=== PATIENT | male | born 1955 | race Caucasian/White ===

== ENCOUNTER 2024-06-17 10:57 | Emergency (ER) | payer MEDICARE, OTHER, SELFPAY ==
[2024-06-17 11:09] VITALS: BP 100/62
--- NOTE | 2024-06-17 12:02 | ED.GENMED ---
History of Present Illness
General
Chief Complaint: Cardiac Symptoms
Source: patient
Exam Limitations: none
Time Seen by Provider: 06/17/24 11:45
History of Present Illness
History of Present Illness:
See MDM
Past History
Past History
ED Past Medical History: Arrthythmia
ED Past Surgical History: None
Social History
Tobacco: Non-smoker
Alcohol: None
Phy Exam
Physical Exam
Physical Exam:
See MDM
Course
Orders/Labs/Results
Orders:
Orders
06/17/24 10:58
EKG [Electrocardiogram (*1)] Urgent
Reason for Study: Atrial Fibrillation
06/17/24 10:59
EKG- Treatment ONCE
06/17/24 12:01
0.9% Sodium Chloride 1000 ml [Nss] 1,000 ml IV BOLUS
Diltiazem HCl [Cardizem] 20 mg IV NOW STA
06/17/24 12:45
Complete Blood Count/With Diff Urgent
Comprehensive Metabolic Panel Urgent
Magnesium Urgent
Abnormal Lab Results
06/17/24
12:45
MCH 31.2 H pg
(27.0-31.0)
MPV 11.0 H fL
(7.4-10.4)
06/17/24 12:45
06/17/24 12:45
Vital Signs
Initial and Last Documented VS:
Initial Vital Signs
BP
100/62
06/17/24 11:09
Last Documented Vital Signs
Pulse Resp BP Pulse Ox
109 13 100/62 98
06/17/24 11:30 06/17/24 11:30 06/17/24 11:09 06/17/24 11:42
MDM/Problems Addressed
Differential Diagnosis Includes:
HPI and MDM Narrative:
69-year-old male presenting with recurrent A-fib. This is a new diagnosis as of 6 weeks ago or so. It was found during a routine visit with his PCP. He was admitted at that time to an outside hospital where he received a transesophageal echo and
was cardioverted. He was placed on sotalol. He had recurrent A-fib requiring another cardioversion. He is now on diltiazem. Patient states compliance with his Eliquis. He presents to this hospital with recurrent A-fib. He has cardiology
follow-up in 2 weeks
Will obtain basic blood work and provide IV Cardizem and attempt to chemically cardiovert. Since patient has required synchronized cardioversion in the past, patient will likely require this again. Regardless, will reach out to our cardiology
group for follow-up and possible medication changes
Physical exam
General: Well appearing and non-toxic
HEENT: protecting airway
Neck: appears supple
CV: No evidence of cyanosis. Tachycardic and irregular
Resp: No accessory muscle use
Abd: Non-distended
Extremities: No deformities
Neuro: alert
Psych: Normal affect
Skin: Intact
Problems Addressed including Acute and Chronic Conditions affecting care:
1. A-fib with RVR
Acuity: acute
Prognosis: unstable
Details: Will give dose of IV Cardizem and attempt to chemically cardiovert. If patient still persistently in A-fib with RVR, will consider synchronized cardioversion
Updates
Cardiology curb sided and recommended doubling his Cardizem
After IV Cardizem, patient is rate controlled and feels comfortable going home. I did offer cardioversion but patient feels comfortable with doubling his Cardizem and follow-up with cardiology
Patient states he has enough diltiazem to get him through to his cardiology appointment.
Differential Diagnosis (but not limited to): A-fib with RVR, electrolyte abnormality
Testing considered: Troponin but denies chest pain or shortness of breath
Drug therapy (if applicable): OTC meds, please see d/c instruction regarding Rx drugs
Amount and/or Complexity of Data Reviewed
Clinical info obtained from: Patient
External data reviewed: N/A
Labs I independently reviewed (but not limited to): Electrolytes within normal limits
Radiology: N/A
Pulse Ox: not hypoxic
EKG independently reviewed: A-fib with RVR, normal axis, no STEMI
Teletypesetter Operator: A-fib with RVR
Critical Care: the high probability of a clinically significant, sudden or life threatening deterioration of the cardiovascular system(s) required my full and direct attention, intervention and personal management. The aggregate critical care time
was 33 minutes. This time is in addition to time spent performing reported procedures but includes the following:
[x] Data Review and interpretation
[x] Patient assessment and monitoring of vital signs
[x] Documentation
[x] Medication orders and management
Risk of Complication:
Social Determinants of health: Good social support
Discussed with other providers: N/A
Escalation of Care includes Admit/Obs: After being observed in the Emergency Department, pt stable for discharge.
Occasional wrong word or 'sound a like' substitutions may have occurred due to the inherent limitations of voice recognition software. Read the chart carefully and recognize, using context, where substitutions have occurred.
*Critical Care Note
Total Time (30-74mins, 75-104mins- exclusive of procedures): 33 min
ED Attending Note
-
Portions of this chart may have been created with voice recognition software.� Occasional wrong word or��sound alike� substitutions may have occurred due to the inherent limitations of voice recognition software.
Discharge Plan
Departure
Patient Disposition: Home (Routine Discharge)
Date of Disposition: 06/17/24
Time of Disposition: 13:47
Patient with high blood pressure during this ER visit?: No
Discharge Problem:
A-fib
Referrals:
Jf Ruiz MD [Active] -
NONE,* [Family Provider] -
Activity Restrictions/Additional Instructions:
Please return for any worsening symptoms.
You may return at any time if you have further concerns.
Please follow up with your doctor at the first available appointment, preferably this week.
You were placed on the cardiac callback tracker. Someone from their office should call you in the next few days. If you do not hear from them in the next few days, please give them a call.
Cardiology recommending that you take your diltiazem twice a day moving forward instead of once a day.
Thank you for choosing [facility].
Interventions
Interventions:
*Risk Screen - Suicide Last Done: 06/17/24 10:59
*General Assessment Last Done: 06/17/24 11:42
*Neglect/Abuse Screening Last Done: 06/17/24 10:59
*ED COVID-19 Vaccine History Last Done: 06/17/24 11:42
ED- Pulmonary Assessment Last Done: 06/17/24 11:42
ED- Cardiac Assessment Last Done: 06/17/24 11:42
Discharge Date and Time
Print Language: MAORI
[2024-06-17] MEDS: NSS 1000 IV (12:48)
[2024-06-17] MEDS: CARDIZEM 20 MG IV (12:48)
[2024-06-17 12:50] VITALS: BP 106/57
[2024-06-17 13:00] VITALS: BP 127/96
[2024-06-17 13:03] LABS: % Basophils 0.5 % (0-2); % Eosinophils 1.2 % (0-6); % Immature Granulocytes 0.3 % (0-0.5); % Lymphocytes 21.3 % (20.5-51.1); % Monocytes 9.3 % (1.7-9.3); % Neutrophils 67.4 % (42.2-75.2); Absolute Eosinophils 0.1 10^3/uL (0-0.7); Absolute Lymphocytes 1.2 10^3/uL (1.2-3.4); Absolute Monocytes 0.5 10^3/uL (0.1-0.6); Absolute Neutrophils 3.9 10^3/uL (1.4-6.5); Hematocrit 50.7 % (39.0-52.0); Hemoglobin 17.4 g/dL (13.0-18.0); Mean Corp Hgb Conc. 34.3 g/dL (33.0-37.0); Mean Corpuscular Hgb 31.2 pg (27.0-31.0); Mean Corpuscular Volume 90.9 fL (80.0-94.0); Nucleated Red Blood Cells % 0 % (-); Platelet Count 145 10^3/uL (130-400); Red Blood Cell Count 5.58 10^6/uL (4.70-6.10); Red Cell Dist. Width 12.9 % (11.5-14.5); White Blood Cell Count 5.8 10^3/uL (4.8-10.8)
[2024-06-17 13:07] LABS: ALT (SGPT) 36 U/L (0-50); AST (SGOT) 23 U/L (17-59); Albumin 4.3 g/dl (3.5-5.0); Alkaline Phosphatase 77 U/L (38-126); Blood Urea Nitrogen 16 mg/dl (9-20); Calcium 10.1 mg/dl (8.4-10.2); Carbon Dioxide 30 mmol/L (22-30); Chloride 103 mmol/L (98-107); Glucose 95 mg/dl (70-99); Magnesium 2.3 mg/dl (1.6-2.3); Potassium 4.4 mmol/L (3.5-5.1); Sodium 139 mmol/L (135-145); Total Bilirubin 0.7 mg/dl (0.2-1.3); Total Protein 6.5 g/dl (6.3-8.2); eGFR > 60.00
[2024-06-17 14:00] VITALS: BP 124/94
== END 2024-06-17 14:15 | disposition home or self-care (01) ==
LOC: EMR 10:57
PROVIDERS: EMERGENCY PHYSICIAN Student in an Organized Health Care Education/Training Program
DX: I48.91 Unspecified atrial fibrillation (principal); Z79.01 Long term (current) use of anticoagulants
CPT/HCPCS: 99284; 96374; 96361; 80053; 83735; 85025; 93005

== ENCOUNTER 2024-06-23 21:05 | Emergency (ER) | payer MEDICARE, OTHER, SELFPAY ==
[2024-06-23 21:44] VITALS: BP 114/52
--- NOTE | 2024-06-23 21:45 | ED.GENMED ---
ED Provider Triage
-
Patient seen by provider in Triage?: Seen in Triage
Attestation: A medical screening examination has been initiated by a qualified medical provider. Based on the assessment performed at this time, it has been determined that an emergent medical condition may exist and the patient has been informed
that further medical evaluation and possible additional diagnostic testing may be needed.
HPI: 69yoM here with elevated heart rate. Diagnosed with afib at [facility] last month. Underwent cardioversion x2 since then without sustained results. Has an appt scheduled in June to discuss ablation. Currently on diltiazem and Eliquis.
Checked his heart rate on his home monitor this evening and HR elevated in the 140s so he came to the ED. He is asymptomatic without chest pain, palpitations, SOB, dizziness, syncope.
GENERAL: Alert , in no apparent distress
EYE: No visual abnormalities.
NECK: Trachea midline
ENT: No visible abnormalities.
LUNGS: No acute respiratory distress
NEUROLOGICAL: Alert and oriented
SKIN: Skin intact. No visible changes.
MUSCULOSKELETAL: Moving extremities normally
PSYCH: Normal and appropriate interaction.
Patient had EKG performed prior to triage which shows afib with HR in the 100s. Patient states he would like to go home without further testing as the only reason he was here was for rate control. BP is stable. Discussed risks of leaving AMA which
he understands. AMA paperwork signed. He was advised to return to the ED with any new or worsening symptoms.
History of Present Illness
General
Chief Complaint: Heart Rate Problem
Time Seen by Provider: 06/23/24 21:45
History of Present Illness
History of Present Illness:
See triage documentation
Past History
Past History
ED Past Medical History: Arrthythmia
ED Past Surgical History: None
Social History
Tobacco: Non-smoker
Alcohol: None
Phy Exam
Physical Exam
Physical Exam:
See triage documentation
Course
Vital Signs
Initial and Last Documented VS:
Initial Vital Signs
Temp Pulse Resp BP Pulse Ox
98.8 F 106 20 114/52 96
06/23/24 21:44 06/23/24 21:44 06/23/24 21:44 06/23/24 21:44 06/23/24 21:44
Last Documented Vital Signs
Temp Pulse Resp BP Pulse Ox
98.8 F 106 20 114/52 96
06/23/24 21:44 06/23/24 21:44 06/23/24 21:44 06/23/24 21:44 06/23/24 21:44
*Critical Care Note
Total Time (30-74mins, 75-104mins- exclusive of procedures): Not Applicable
ED Attending Note
-
Portions of this chart may have been created with voice recognition software.� Occasional wrong word or��sound alike� substitutions may have occurred due to the inherent limitations of voice recognition software.
Discharge Plan
Departure
Patient Disposition: Against Medical Advice
Date of Disposition: 06/23/24
Time of Disposition: 21:46
Discharge Problem:
Atrial fibrillation
Instructions: Atrial Fibrillation (DC), Leaving Against Medical Advice
Referrals:
UNKNOWN - PT DOES,NOT KNOW [Family Provider] -
Activity Restrictions/Additional Instructions:
Continue taking diltiazem and Eliquis.
Please follow-up with your art psychotherapist or therapist. Return to the ER immediately with any worsening symptoms, chest pain, shortness of breath, dizziness, passing out.
Interventions
Interventions:
*Risk Screen - Suicide Last Done: 06/23/24 21:44
*General Assessment Last Done: 06/23/24 21:44
*Neglect/Abuse Screening Last Done: 06/23/24 21:44
*Nursing Disposition Last Done: 06/23/24 21:51
Discharge Date and Time
Discharge Date/Time: 06/23/24 21:55
Print Language: SALVADOREAN
== END 2024-06-23 21:55 | disposition left against medical advice (07) ==
LOC: EMR 21:05
PROVIDERS: EMERGENCY PHYSICIAN Emergency Medicine
DX: I48.91 Unspecified atrial fibrillation (principal); Z79.01 Long term (current) use of anticoagulants
CPT/HCPCS: 99283; 93005

== ENCOUNTER → 2024-07-18 10:43 | Outpatient (REF) | payer MEDICARE, OTHER, SELFPAY | LOC: DHSLP 10:43 | PROVIDERS: ATTENDING PHYSICIAN Internal Medicine Critical Care Medicine; FAMILY PHYSICIAN Internal Medicine Cardiovascular Disease | DX: G47.33 Obstructive sleep apnea (adult) (pediatric) (principal); R09.02 Hypoxemia | CPT/HCPCS: 95800 ==

== ENCOUNTER → 2024-09-04 07:47 | Outpatient (REF) | payer MEDICARE, OTHER, SELFPAY ==
[2024-09-04 08:38] LABS: INR 1.27; PT 16.1 Sec (11.4-14.6)
[2024-09-04 08:46] LABS: ALT (SGPT) 43 U/L (0-50); AST (SGOT) 27 U/L (17-59); Albumin 4.2 g/dl (3.5-5.0); Alkaline Phosphatase 77 U/L (38-126); Blood Urea Nitrogen 14 mg/dl (9-20); Calcium 9.7 mg/dl (8.4-10.2); Carbon Dioxide 30 mmol/L (22-30); Chloride 106 mmol/L (98-107); Glucose 96 mg/dl (70-99); Magnesium 2.1 mg/dl (1.6-2.3); Potassium 4.7 mmol/L (3.5-5.1); Sodium 142 mmol/L (135-145); Total Bilirubin 0.9 mg/dl (0.2-1.3); eGFR > 60.00
[2024-09-04 08:50] LABS: % Basophils 0.3 % (0-2); % Eosinophils 2.3 % (0-6); % Immature Granulocytes 0.5 % (0-0.5); % Lymphocytes 19.3 % (20.5-51.1); % Monocytes 10.3 % (1.7-9.3); % Neutrophils 67.7 % (42.2-75.2); Absolute Eosinophils 0.1 10^3/uL (0-0.7); Absolute Lymphocytes 1.2 10^3/uL (1.2-3.4); Absolute Monocytes 0.6 10^3/uL (0.1-0.6); Absolute Neutrophils 3.9 10^3/uL (1.4-6.5); Hematocrit 45.1 % (39.0-52.0); Hemoglobin 15.2 g/dL (13.0-18.0); Mean Corp Hgb Conc. 34.1 g/dL (33.0-37.0); Mean Corpuscular Hgb 31.9 pg (27.0-31.0); Mean Corpuscular Volume 93.5 fL (80.0-94.0); Mean Platelet Volume 11.2 fL (7.4-10.4); Nucleated Red Blood Cells % 0 % (-); Platelet Count 127 10^3/uL (130-400); Red Blood Cell Count 4.89 10^6/uL (4.70-6.10); Red Cell Dist. Width 13.8 % (11.5-14.5); White Blood Cell Count 5.7 10^3/uL (4.8-10.8)
== END ==
LOC: SDSPAT 07:47
PROVIDERS: ATTENDING PHYSICIAN Internal Medicine Cardiovascular Disease; OTHER PHYSICIAN Internal Medicine Cardiovascular Disease
DX: I48.91 Unspecified atrial fibrillation (principal)
CPT/HCPCS: 36415; 75572; 80053; 83735; 85025; 85610; 86850; 86900; 86901; 93005; Q9967

== ENCOUNTER 2024-09-12 05:59 | Day surgery (SDC) | payer MEDICARE, OTHER, SELFPAY ==
[2024-09-04 07:55] VITALS: BMI 29.7
--- NOTE | 2024-09-04 08:34 | HPS.HSE ---
Family Physician
-
Family Physician: NO INTERVIEW UNKNOWN
Chief Complaint
-
Persistent atrial fibrillation.
History of Present Illness
The patient is a 69 year old male presenting today for persistent atrial fibrillation. The patient reports symptoms such as fatigue, decreased exercise capacity, and intermittent palpitations likely secondary to this diagnosis. He
previously underwent 2 EBONY-guided cardioversions in April 2024 and May 2024 for his arrhythmia. Unfortunately, he has had an early recurrence of his atrial fibrillation after each procedure. He is currently on pharmacological therapy with
Diltiazem and Metoprolol Tartrate. He reports compliance with Eliquis for oral anticoagulation due to a CHADS-VASc of 1. He is interested in pursuing pulmonary vein isolation for more definitive arrhythmia management. He denies any current
complaints today such as chest pain, shortness of breath, nausea, vomiting, diarrhea, lightheadedness, dizziness, cough, sore throat, or fever.
Medical History
Past Medical History
Past Medical History: Reports Other
Additional Past Medical History:
1. Persistent atrial fibrillation, status post EBONY-guided cardioversion x2; pharmacological therapy with Diltiazem and Metoprolol Tartrate, oral anticoagulation with Eliquis.
2. Hyperlipidemia, diet controlled.
3. Venous insufficiency with chronic, bilateral lower extremity edema.
4. Mild mitral regurgitation.
5. Mild-moderate tricuspid regurgitation.
6. Chronic interstitial lung disease per pre-ablation chest CT.
7. Newly diagnosed sleep apnea, awaiting device.
8. Colon polyps.
9. BPH.
Past Surgical History: Reports Other
Additional Past Surgical History:
1. EBONY-guided cardioversion x2.
2. Left knee surgery.
3. Rectal fissure repair.
4. Childhood double hernia repair.
5. Colonoscopy x3.
Social History
Tobacco: Non-smoker
Alcohol: None
Personal:
Living: Other (He lives with his in a 2 story home. )
Family History
Family History: Not pertinent
Allergies / Home Medications
Allergy/Medication List:
Home medications:
1. Eliquis 5 mg p.o. twice a day.
2. Cholecalciferol 125 mcg p.o. daily.
3. Curcumin complex 750 mg p.o. daily.
4. Diltiazem 120 mg p.o. twice a day.
5. Garlic 1160 p.o. twice a day.
6. Amharic knot weed 2 tablets p.o. twice a day.
7. Metoprolol Tartrate 25 mg p.o. twice a day.
8. Multivitamin 1 tablet p.o. daily.
9. Nattokinase 2000 units p.o. daily.
10. Ivette dietary supplement 1 tablet p.o. twice a day.
11. Joselyn-sode 1 dose p.o. daily.
12. Vitamin B12 1 spray p.o. daily.
Allergies: No known allergies.
Review of Systems
-
A 12 point ROS was completed and negative except as noted: Yes
Physical Exam
Vital Signs
Blood pressure 113/77. Heart rate 58. Respirations 18. Pulse ox 99% on room air.
Height 6 feet, 1.14 inches. Weight 102.4 kg. BMI 29.7.
Physical Exam
General: Well Developed, Well Nourished and No Apparent Distress
HEENT: NormoCephalic, Moist mucous membranes, Atraumatic and PERRLA
Respiratory: Clear
Cardiac: Irregular Rhythm
GI: Soft, Non Tender and Non Distended
Musculoskeletal: Normal Gait & Station and Other (Chronic bilateral lower extremity edema with venous stasis. )
Skin: Warm and Dry
Neuro: AO x 3 and Nonfocal/grossly intact
Laboratory Results
-
DIAGNOSTIC STUDIES as of 09/04/2024: White blood cell count 5.7. Hemoglobin 15.2. Platelet count 127,000. PT 16.1. INR 1.27. Sodium 142. Potassium 4.7. BUN 14. Creatinine 0.8. Glucose 96. Calcium 9.7. Magnesium 2.1. AST 27. ALT 43. Albumin 4.2. Type
and screen A positive.
EKG 09/04/2024: Atrial fibrillation.
Chest CT 09/04/2024: Single, individual left and right superior and inferior pulmonary veins. No left atrial filling defect/thrombus is identified. Bilateral subpleural peripheral reticular interstitial and mild groundglass opacities most suggestive
of a chronic interstitial lung disease.
Echocardiogram 06/15/2024: Ejection fraction is 52%. Mild dysfunction. Mildly dilated right atrium. Mild mitral regurgitation. Mild-moderate tricuspid regurgitation.
Impression/Plan
-
IMPRESSION/PLAN:
1. Persistent atrial fibrillation: The patient is in need of pulmonary vein isolation with Dr. Ben Cardenas on 09/12/2024. The benefits and risks of the procedure have been explained to the patient. The patient understands these risks and wishes to
proceed. He will not be required to undergo a pre-procedural transesophageal echocardiogram as he has been compliant with his home oral anticoagulation. He is aware to continue his Eliquis up until the night prior to his procedure. He will take no
medications the morning of his ablation.
[2024-09-12] VITALS (17 sets, daily range): BP systolic 80–97; BP diastolic 49–69; BMI 29.8
--- NOTE | 2024-09-12 07:38 | ITS.CL.ABL ---
Recessing Machine Operator - Ablation
Ablation
Procedure Report:
Primary Air Brakes Inspector: Dr Ena Herrmann
Procedure Date: 09/12/2024
Patient History:
Patient is a very pleasant 69-year-old male with a past medical history significant for dyslipidemia, venous insufficiency, and symptomatic persistent atrial fibrillation.
See H&P for complete details.
Indication:
Symptomatic persistent atrial fibrillation
Early recurrence following antiarrhythmic medical therapy
Arrhythmia Specific History:
Prior Medical Therapies for Rate and Rhythm Control:
X Beta-marianne
X Calcium channel-marianne
[ ] Amiodarone
[ ] Dronederone
X Sotalol
[ ] Flecainide
[ ] Dofetilide
[ ] Options limited by bradycardia
[ ] Options limited by comorbid renal disease
Prior Procedural Therapies for AF/AFL:
X Cardioversion
[ ] Pulmonary Vein Isolation
[ ] Posterior Wall Isolation
[ ] Additional lines (Specify)
[ ] Surgical Chapman-MAZE or PVI (Specify)
Procedure Performed:
X AF ablation procedure (44255) -- includes LA/CS pacing, trans-septal, 3D mapping, + ICE
[ ] +IV drug (52603)
[ ] +Other Arrhythmia (82072)
X +Other AF Line/ablation (61049) -- Posterior wall isolation (floor, roof, wall)
Risks and expected recovery has been explained in detail. Alternative options have been explored, and in a shared-decision making fashion we have decided that this was the most appropriate procedure.
Method
NPO status confirmed. Grounding pad applied. Defibrillator pads applied. Continuous surface ECG, pulse oximetry, and blood pressure were monitored. Procedure was performed under general anesthesia, with anesthesia services.
Both groins were clipped, prepped with Chloraprep, and draped in sterile fashion. Time out was called. Local anesthesia administered with bupivacaine. The right femoral vein was accessed for catheter placement, using ultrasound guidance (images
saved to record), micro-puncture needle/wire, and modified seldinger technique. 3 sheaths were placed. The following catheters were used:
[ ] Tacticath SE (D/F Curve) ablation catheter
X Viewflex 9Fr ICE catheter
X Inquiry decapolar 6Fr diagnostic catheter
[ ] CRD Hex 6Fr
[ ] Arctic Front Advance Cryoballoon ([ ]28mm[ ]23mm)
[ ] Achieve Advance mapping catheter ([ ]15mm[ ]20mm)
X FlexCath Contour 10 Fr with PulseSelect PFA Catheter
X Advisor HD Grid Mapping Catheter, SE
[ ] AcusJewel Toned AcuNav 8 Fr ICE catheter
[ ]Other: [ ]
Intracardiac ultrasound (ICE) was carefully advanced into the right atrium to guide sheath placement over a J-wire, catheter placement, guide trans-septal puncture, identify potential complications, identify anatomic structures and ensure proper
contact between ablation catheter and tissue.
Heparin was given prior to trans-septal puncture. Heparin was given to achieve and maintain a target ACT of 300-400 seconds throughout the procedure.
Trans-septal access was performed under ICE guidance. The trans-septal puncture was performed with a SafeSept wire through a Brockenbrough needle assembly through the steerable sheath. The wire was visualized as it entered the LSPV and system
advanced under ICE guidance and fluoroscopy into the LA. The Brockenbrough needle assembly, SafeSept wire and sheath dilator were removed under negative pressure. LA pressure was measured and recorded.
ICE and 3D mapping was performed to identify relevant cardiac structures. A careful 3D map was created to assess for regions of low-voltage and abnormal electrogram signals using HD grid mapping catheter and PulseSelect catheter. Additional mapping
was performed as outlined below.
Prior to ablation, glycopyrrolate was provided. PulseSelect catheter was advanced over J-wire to the ostium of each vein. Pulmonary vein isolation was performed with ostial and antral lesions in a circumferential manner. Contact was visualized via
EAM, ICE, fluoroscopy, and EGM signals. Posterior wall isolation was performed by anchoring the J-wire within the pulmonary vein and placing the PulseSelect catheter in contact with the posterior wall as visualized by aforementioned methods.
Following completion of ablation lesions, sinus rhythm was restored with a 200J synchronized DCCV and a post-ablation voltage/activation map was performed in sinus rhythm. Entrance and exit block were confirmed for each vein and the posterior wall.
Catheter and sheath were removed from the left atrium and post-ablation intracardiac echo evaluation was consistent with pre-ablation with no changes and no pericardial effusion and there is no left atrial thrombus or left ventricle thrombus seen.
Electrophysiology study was performed. Hemostasis was obtained with figure of 8 stitch for each groin and with manual pressure. Protamine was used for reversal.
Estimated Blood Loss
5 mL
Complications
None
Fluoroscopy: 2.4 minutes; 14.53 mGy; DAP 1.74
LA Pressure: Pre 11 mmHg, post 12 mmHg
Baseline Intervals:
Rhythm: AF
QRS: 83 ms
QT: 228 ms
QTc: 267 ms
Post-Procedure Intervals:
WV: 158 ms
QRS: 81 ms
QT: 394 ms
QTc: 404 ms
AVWB: 330 ms
AERP/AVNERP: 600/260 ms
Recommendations
- Bedrest with straight-leg precautions as ordered
- Anticipate same day discharge if patient meeting clinical metrics
- Resume home medications as indicated
- Ok to resume anticoagulation tonight if patient and groin sites stable
- PPI daily for 30 days
- Plan for follow-up in office as scheduled
Ben Cardenas DO, FACC, [facility]
Clinical Cardiac Tour Guide
cc: Dr Ena Herrmann; Dr. Armando Love
[2024-09-12 08:38] LABS: ACT-LR - POC 363 Seconds (116-155)
[2024-09-12 09:15] LABS: ACT-LR - POC 345 Seconds (116-155)
[2024-09-12 09:32] LABS: ACT-LR - POC 355 Seconds (116-155)
[2024-09-12 09:52] LABS: ACT-LR - POC 160 Seconds (116-155)
[2024-09-12] MEDS: ANESTHETIC LOZENGE 1 LOZENGE PO (11:33)
[2024-09-12 14:07] LABS: ACT-LR - POC > 397 Seconds (116-155)
--- NOTE | 2024-09-12 14:38 | W.PN.UPDATE ---
Update Note
Progress Note Update
69 yo WM s/p PVI (Same day)> He denies cp, sob, vernell diet, amb w/o dizziness, EKG SR, R fem site c/d/i, no HT< soft. He will resume Eliquis tonight and continue diltiazem and metoprolol. Activity restrictions reviewed. He will f/u Dr. Cardenas in 3 mo
and continue care with Dr. Herrmann. He is for d/c home after 3pm.
== END 2024-09-12 15:00 | disposition home or self-care (01) ==
LOC: CATH 05:59
PROVIDERS: ATTENDING PHYSICIAN Internal Medicine Cardiovascular Disease
DX: I48.19 Other persistent atrial fibrillation (principal); E78.5 Hyperlipidemia, unspecified; I87.2 Venous insufficiency (chronic) (peripheral); I08.1 Rheumatic disorders of both mitral and tricuspid valves; J84.9 Interstitial pulmonary disease, unspecified; G47.30 Sleep apnea, unspecified; Z86.0100 Personal history of colon polyps, unspecified; N40.0 Benign prostatic hyperplasia without lower urinary tract symptoms; Z79.01 Long term (current) use of anticoagulants; Z79.899 Other long term (current) drug therapy
CPT/HCPCS: C1732; C1730; C1769; C1894 ×2; 85347; 86900; 86901; 93005; 93656; 93657; C1733